=== PATIENT | female | born 1995 | race Hispanic/Latino ===

== ENCOUNTER 2018-04-09 18:57 | Inpatient (IN) | payer OTHER ==
[2018-04-09 19:31] VITALS: BMI 25.7
--- NOTE | 2018-04-09 22:32 | PDOC.LDHP ---
Labor and Delivery H&P Chief complaint: contractions HPI: term sool low intervention Current gestational age (weeks): 39 Due date: 04/10/18 Dating criteria: last menstrual period, first trimester ultrasound Grav: 2 Para: 1 OB History Details: nswvd x 1 Current complications: none Abnormal US findings: No Current medications: pre- vitamins Previous surgical history: none Allergies/Adverse Reactions: Allergies Allergy/AdvReac Type Severity Reaction Status Date / Time No Known Drug Allergies Allergy Verified 04/09/18 19:17 Social history: none - Physical Exam Vital signs reviewed and normal: yes General: NAD, resting, breathing through contractions Heart: RRR Lungs: CTAB Abdomen: NTTP Extremeties: no edema FHT: category 1 [place] contractions every: 5 - Vaginal Exam cm dilated: 4 Effacement: 50% Station: -1 - OB Labs Blood type: O RH: positive Antibody Screen: negative HIV: negative RPR: negative HEPSAg: negative 1 hour GCT: negative GBS: positive Urine drug screen: not done Rubella: immune - Assessment L&D Assessment: term patient in labor - Plan Plan: admit to L&D, labor augmentation if indicated, GBS antibiotic prophylaxis
[2018-04-09] MEDS: Lactated Ringer's 1,000 ML IV SCH (23:00)
[2018-04-09] MEDS ORDERED: Lidocaine 1% (PF) 30 ML VIAL SC PRN (23:07)
[2018-04-09] MEDS ORDERED: Ondansetron PF 4 MG/2 ML Vial IVP PRN (23:07)
[2018-04-09] MEDS ORDERED: Ibuprofen 800 MG TAB PO PRN (23:07)
[2018-04-09] MEDS ORDERED: Lactated Ringer's 1,000 ML IV SCH (23:07)
[2018-04-09] MEDS ORDERED: Promethazine HCl 25 MG/ML VIAL IM PRN (23:07)
[2018-04-09] MEDS ORDERED: HYDROcodone/Acetaminophen 5/325 mg Tablet PO PRN ×2 (23:07)
[2018-04-09] MEDS ORDERED: Penicillin G Potassium 5 MILL.UNITS in Sodium Chloride 0.9% 100 ML IVPB SCH (23:15)
[2018-04-09 23:17] LABS: Hemoglobin 11.6 g/dL (12.0-16.0); Mean Corpuscular HGB CONC 34.7 g/dL (32.0-36.0); Mean Corpuscular Hemoglobin 30.7 pg (27.0-31.0); Mean Corpuscular Volume 88.5 fL (78.0-98.0); Mean Platelet Volume 7.4 fL (7.4-10.4); Platelet Count 236 thou/uL (130-400); RBC Distribution Width 11.8 % (11.5-14.5); Red Blood Cell (RBC) Count 3.78 mill/uL (4.20-5.40); White Blood Cell (WBC) Count 10.7 thou/uL (4.8-10.8)
[2018-04-09 23:59] LABS: HBSAg Index 0.15 S/CO (0-0.99); Hep B Surf Ag Non-Reactive S/CO (NonReactive)
[2018-04-10 00:04] LABS: Syphilis Antibody Nonreactive (Nonreactive); Syphilis Antibody Index 0.06 S/CO (<1.00 Non-Reactive)
[2018-04-10] MEDS: Butorphanol Tartrate 1 MG/ML VIAL SLOW IVP PRN ×2 (00:33→04:15)
[2018-04-10] MEDS: Penicillin G 2.5 MILL.units 2.5 MILL.UNITS in Premix Bag 1 BAG IVPB SCH ×5 (03:01→18:39)
[2018-04-10] MEDS: NS / Oxytocin 40 units/1000ml 1,000 ML IV PRN ×2 (07:37→08:15)
--- NOTE | 2018-04-10 07:48 | PDOC.OPDEL ---
OB Operative/Delivery Note Delivery Dr/Surgeon: Aroldo obrien [facility] OB Hospitalist Pre-Delivery Diagnosis: active labor Procedure/Post Delivery Dx: spontaneous vaginal delivery Weeks gestation: 39 Anesthesia: none - Findings A Sex: male Weight: 0 oz (pending ) - 1 min: 9 - 5 min: 9 - Additional Findings/Plan Placenta delivered: spontaneous Repaired Obstetrical Laceration: none Estimated blood loss: ~150 Compilations/Other Findings: C/C at 0700 arom with mod meconium OP presentation over intact perineum Nursery in attendance. Placenta intact Post delivery plan: routine recovery
[2018-04-10] MEDS: Lactated Ringer's 1,000 ML IV SCH ×2 (08:13→18:39)
[2018-04-10] MEDS ORDERED: Promethazine HCl 25 MG/ML VIAL IM PRN (08:18)
[2018-04-10] MEDS ORDERED: Preparation H Ointment 28 GM TUBE PR PRN (08:18)
[2018-04-10] MEDS ORDERED: Milk Of Magnesia 30 ML UDCUP PO PRN (08:18)
[2018-04-10] MEDS ORDERED: Ondansetron PF 4 MG/2 ML Vial IVP PRN (08:18)
[2018-04-10] MEDS ORDERED: Bisacodyl 10 MG SUPP PR PRN (08:18)
[2018-04-10] MEDS ORDERED: Adacel (T-DAP) 0.5 ML SYRINGE IM ONE (08:18)
[2018-04-10] MEDS ORDERED: Lanolin Ointment 7 GM TUBE TOP PRN (08:18)
[2018-04-10] MEDS ORDERED: NS / Oxytocin 40 units/1000ml 1,000 ML IV SCH (08:18)
[2018-04-10] MEDS ORDERED: Benzocaine/Menthol 20-0.5% 60 ML CAN TOP PRN (08:18)
[2018-04-10] MEDS ORDERED: HYDROcodone/Acetaminophen 5/325 mg Tablet PO PRN ×2 (08:18)
[2018-04-10] MEDS ORDERED: diphenhydrAMINE 25 MG CAP PO PRN (08:18)
[2018-04-10] MEDS ORDERED: Zolpidem Tartrate 5 MG TAB PO PRN (08:18)
[2018-04-10] MEDS ORDERED: Ferrous Sulfate 325 MG TAB PO SCH (08:30)
[2018-04-10] MEDS: Docusate Calcium (SURFAK) 240 MG CAP PO SCH ×2 (12:02→21:43)
[2018-04-10] MEDS: Prenatal Vitamin 1 TAB PO SCH (12:02)
[2018-04-10] MEDS: Ibuprofen 800 MG TAB PO SCH ×2 (15:09→21:44)
[2018-04-10] MEDS: Ferrous Sulfate 325 MG TAB PO SCH (18:39)
[2018-04-11] MEDS: Lactated Ringer's 1,000 ML IV SCH ×3 (03:07→15:13)
[2018-04-11] MEDS: Ibuprofen 800 MG TAB PO SCH ×2 (05:05→12:45)
[2018-04-11] MEDS: Ferrous Sulfate 325 MG TAB PO SCH ×2 (08:17→16:02)
[2018-04-11 08:21] VITALS: BP 109/58; TEMP 97.7
[2018-04-11] MEDS: Prenatal Vitamin 1 TAB PO SCH (09:04)
[2018-04-11] MEDS: Docusate Calcium (SURFAK) 240 MG CAP PO SCH (09:04)
--- NOTE | 2018-04-11 14:04 | PDOC.PP ---
Post Progress Note Post Day #: 1 Subjective: doing well, some concerns about baby feeding schedule, cramping off and on, min lochia PO intake tolerated: yes Flatus: yes Ambulation: yes Vital Signs (12 hours) Temp Pulse Resp BP Pulse Ox 04/11/18 08:21 97.7 F 82 16 109/58 L 99 04/11/18 08:05 99 04/11/18 05:05 97.8 F 76 16 108/66 Weight Weight 174 lb - Physical Examination General: NAD Respiratory: non-labored breathing Abdominal: no distention Neurological: no gross focal deficits Psychiatric: A&Ox3, normal affect Result Diagrams: 04/09/18 23:10 Additional Labs: Post Labs Blood Type O POSITIVE 04/09/18 23:10 Hep Bs Antigen Non-Reactive S/CO (NonReactive) 04/09/18 23:10 (1) 40 weeks gestation of Code(s): Z3A.40 - 40 WEEKS GESTATION OF Status: Acute (2) Vaginal delivery Code(s): O80 - ENCOUNTER FOR FULL-TERM UNCOMPLICATED DELIVERY Status: Acute - Assessment/Plan PPD1 doing well, sp yesterday. Is not sure if she desires DC today or tomorrow, waiting to review with portable track crew chief.
== END 2018-04-11 18:00 | disposition home or self-care (01) | DRG 807 ==
LOC: L&D/OP 18:57 → L&D 22:34 → 3SW 04-10 09:16
PROVIDERS: ADMIT Obstetrics & Gynecology; ATTEND Obstetrics & Gynecology
PROC: 10E0XZZ Delivery of Products of Conception, External Approach (ICD-10-PCS; principal; 2018-04-10)
DX: O99.824 Streptococcus B carrier state complicating childbirth (principal); Z37.0 Single live birth; Z3A.39 39 weeks gestation of pregnancy; O77.0 Labor and delivery complicated by meconium in amniotic fluid
CPT/HCPCS: 36415; 85027; 86780; 86850; 86900; 86901; 87340; 88307; 99285; J0595; J2001; J2540; J7050

== ENCOUNTER 2020-06-28 20:18 | Emergency (ER) | payer OTHER, SELFPAY ==
[2020-06-28] MEDS ORDERED: Lorazepam 1 MG TAB ONE (20:39)
[2020-06-28 22:28] LABS: #Eosinphils 0.1 thou/uL (0.0-0.7); %Eosinophils 2.1 % (0.0-10.0); Hemoglobin 13.5 g/dL (12.0-16.0)
[2020-06-28 22:33] LABS: #Lymphocytes 1.4 thou/uL (1.20-3.40); #Monocytes 0.4 thou/uL (0.11-0.59); #Neutrophils 4.8 thou/uL (1.40-6.50); %Basophils 0.2 % (0.0-1.0); %Lymphocytes 19.9 % (21.0-51.0); %Monocytes 6.5 % (0.0-10.0); %Neutrophils 71.3 % (42.0-75.0); Mean Corpuscular HGB CONC 33.4 g/dL (32.0-36.0); Mean Corpuscular Hemoglobin 30.8 pg (27.0-31.0); Mean Corpuscular Volume 92.2 fL (78.0-98.0); Mean Platelet Volume 6.3 fL (7.4-10.4); Platelet Count 233 thou/uL (130-400); RBC Distribution Width 10.6 % (11.5-14.5); Red Blood Cell (RBC) Count 4.37 mill/uL (4.20-5.40); White Blood Cell (WBC) Count 6.8 thou/uL (4.8-10.8)
[2020-06-28 22:47] LABS: Bilirubin Negative (Negative); Blood, Urine 2+ (Negative); Clarity Clear (Clear); Glucose, Urine (Dipstick) Normal (Negative); Ketone, Urine 20 mg/dL (Negative); Leukocyte Negative Leu/uL (Negative); Nitrite Negative (Negative); Protein, Urine (Dipstick) Negative (Neg-Trace); RBC/HPF None Seen HPF (0-3); Renal Epithelial 0-3 HPF (None Seen); Specific Gravity, Urine 1.008 (1.002-1.036); Squamous Epithelial 0-3 HPF (0-3); Urobilinogen Normal mg/dL (Less than 2); WBC/HPF 0-3 HPF (0-3)
[2020-06-28 22:49] LABS: ALT (SGPT) 9 U/L (8-55); AST (SGOT) 15 U/L (5-34); Alkaline Phosphatase 60 U/L (40-110); Anion Gap 15 mmol/L (10-20); BUN (Urea Nitrogen) 14 mg/dL (7.0-18.7); Bilirubin, Total 2.2 mg/dL (0.2-1.2); Calc. Creatinine Clearance 0 mL/min (70-130); Calcium 8.3 mg/dL (7.8-10.44); Carbon Dioxide 20 mmol/L (22-29); Chloride 106 mmol/L (98-107); Globulin 3.2 g/dL (2.4-3.5); Glucose 100 mg/dL (70-105); Potassium 3.2 mmol/L (3.5-5.1); Protein, Total 7.2 g/dL (6.0-8.3); Sodium 138 mmol/L (136-145)
[2020-06-28 22:54] LABS: Bacteria/HPF Rare-Few HPF (None Seen)
[2020-06-28] MEDS ORDERED: Acetaminophen 500 MG TAB ONE (23:26)
== END 2020-06-28 23:31 | disposition home or self-care (01) ==
LOC: ERS 20:18
DX: F41.9 Anxiety disorder, unspecified (principal); R19.7 Diarrhea, unspecified
CPT/HCPCS: 36415; 80053; 81003; 81015; 85025; 93005